=== PATIENT | female | born 1975 | race Caucasian/White ===

== ENCOUNTER 2025-08-11 18:07 | Emergency (ER) | payer OTHER, SELFPAY ==
[2025-08-11] VITALS (18 sets, daily range): BP systolic 111–155; BP diastolic 66–92; PULSE 68–89; RESP 12–24; O2SAT 95–100
--- NOTE | ~2025-08-11 | CT_ITS ---
EXAMINATION: CT facial bones wo con DATE: 08/11/2025 20:15 INDICATION: Right periorbital injury. TECHNIQUE: Computed tomography (CT) of the facial bones and maxillofacial region was performed without intravenous contrast. Automated exposure control and iterative reconstruction technique were employed. The dose-length product was 458.46 mGy-cm. COMPARISON: None. FINDINGS: There is rightward deviation of the nasal septum. There is a chronic fracture deformity of anterior wall of right maxillary sinus. No acute fracture. There is mild mucosal thickening in right maxillary sinus. The mastoid air cells are normal. There is severe cervical spondylosis. IMPRESSION: 1. No acute fracture. Reviewed, dictated and finalized at location E. PACKAGER IMPRESSION: 1. No acute fracture.
--- NOTE | ~2025-08-11 | XR_ITS ---
EXAMINATION: XR chest 2V, 08/11/2025 18:40 LATHE SET UP PERSON HISTORY: chest pain COMPARISON: No comparisons available. Technique: 2 views obtained. Findings: The lungs are clear, no effusion. No pneumothorax. Heart is normal size. Mediastinal and hilar contours are within normal limits. Bony thorax no acute abnormality. Impression: No acute cardiopulmonary abnormality. Reviewed, dictated and finalized at location P. E SET UP PERSON Impression: No acute cardiopulmonary abnormality.
--- NOTE | ~2025-08-11 | CT_ITS ---
EXAMINATION: CT brain wo con DATE: 08/11/2025 20:15 INDICATION: Headache. Head injury. TECHNIQUE: Computed tomography (CT) of the head was performed without intravenous contrast. The mA was adjusted according to patient size. Iterative reconstruction technique was employed. The dose-length product was 605.33 mGy-cm. COMPARISON: None FINDINGS: There is a right frontoparietal subdural hematoma that is hypodense to pierre matter with maximum thickness of 4 mm. There is a left frontoparietal subdural hematoma that is hypodense to pierre matter with maximum thickness of 4 mm. There is no acute ischemic infarct or abnormal mass lesion. The ventricles are normal size. The orbits are normal. The paranasal sinuses are clear. The mastoid air cells are normal. IMPRESSION: 1. Small bilateral subdural hematomas, likely subacute. I called this result to Dr. Geller. Reviewed, dictated and finalized at location E. ERENCE PLANNING MANAGER
--- NOTE | 2025-08-11 18:08 | ECG_ITS ---
Test Date: 2025-08-11 18:16:36 Measurements Intervals [place] Rate: 83 P: 17 ME: 116 QRS: 74 QRSD: 85 T: 46 QT: 359 QTc: 422 Interpretive Statements SINUS RHYTHM WITH SHORT ME INTERVAL No previous ECG available for comparison Electronically Signed On 08-12-2025 18:22:39 SHIPPING TEAM LEADER by Angelina Alford M.D.
[2025-08-11] MEDS: ASPIRIN 81 MG CHEWABLE TABLET 324 MG PO (18:18)
[2025-08-11 18:26] LABS: Hematocrit 43.1 % (37.0-47.0); Hemoglobin 14.2 g/dL (12.0-15.0); Immature Granulocyte Percent A 0.3 % (0-0.5); Lymphocytes Absolute Auto 2.60 K/mm3 (0.9-3.2); Mean Corpuscular HGB Conc 32.9 g/dl (32-36); Mean Corpuscular Hemoglobin 31.1 pg (26-34); Mean Corpuscular Volume 94.3 fl (80-100); Nucleated Red Blood Cells Absolute Auto 0.000 K/mm3 (0.0-0.012); Nucleated Red Blood Cells Perc 0.0 % (0.0-0.2); Platelet Count Result 425 k/mm3 (150-375); Red Blood Count 4.57 M/mm3 (4.2-5.4); White Blood Count 11.0 K/mm3 (4.5-10.0)
--- NOTE | 2025-08-11 18:30 | PC.NURSE ---
Pt has visible bruise on R eye. When asked about this, pt stated that it was caused by hitting her eye on a pole. Pt reports that she feels safe at home.
[2025-08-11 18:39] LABS: INR 0.9; Prothrombin Time 12.1 Seconds (11.1-14.7)
[2025-08-11 18:40] LABS: Partial Thromboplastin Time 25.2 Seconds (22.3-36.8)
[2025-08-11 18:55] LABS: Alanine Aminotransferase 20 U/L (6-35); Albumin Level 4.5 g/dL (3.5-5.1); Alkaline Phosphatase 75 U/L (38-126); Anion Gap 10 mmol/L (4-12); Aspartate Amino Transferase 25 U/L (14-36); Bilirubin,Total 0.3 mg/dL (0.2-1.3); Blood Urea Nitrogen 16 mg/dL (7-17); Calcium 9.5 mg/dL (8.4-10.2); Carbon Dioxide 22 mmol/L (22-30); Chloride 107 mmol/L (98-107); Estimated CRCL calculation 59 ml/min; Estimated Glomerular Filt Rate > 60; Glucose 97 mg/dL (65-110); Lipase 74 U/L (23-300); Potassium 3.5 mmol/L (3.4-5.0); Sodium 139 mmol/L (137-145); Total Protein 7.8 g/dL (6.3-8.2)
[2025-08-11 19:02] LABS: Troponin I < 0.012 ng/mL (0.000-0.034)
--- OUTSIDE RECORDS SUMMARY | 2025-08-11 19:10 | XMS_ITS | Clinical Summary ---
Author Organization [facility] Address [address] [place] [address] Care Team Providers Care Utility Technician Name Role Phone Guerrero Byrne MD Unavailable [phone] Gayle Orourke MD Primary Care Provider [phone] Allergies Active Allergy Reactions Criticality Noted Date Comments Bee Venom Unknown Low Penicillins Unknown Tramadol Vomiting Low Medications amitriptyline 75 MG tablet Take 2 tablets by mouth nightly at bedtime. 08/13/2018 Active atenolol 25 MG tablet Take 25 mg by mouth daily. 12/25/2021 Active baclofen 10 MG tablet Take 10 mg by mouth 3 (three) times a day. 02/16/2022 Active cetirizine 10 MG tablet Take 10 mg by mouth daily. 01/17/2022 Active DULoxetine 60 MG capsule Take 60 mg by mouth daily. 02/18/2022 Active QUEtiapine 400 MG tablet Take 400 mg by mouth nightly at bedtime. 02/02/2022 Active QUEtiapine 200 MG tablet Take 200 mg by mouth daily. 02/12/2022 Active senna-docusate 8.6-50 MG tablet Take 1 tablet by mouth in the morning. 30 tablet 02/23/2022 Active polyethylene glycol (MIRALAX) 17 GM/SCOOP powder Take 17 g by mouth daily as needed (constipation ). 255 g 02/23/2022 Active aspirin EC 325 MG tablet Take 1 tablet (325 mg total) by mouth daily with breakfast. To prevent blood clots. 30 tablet 02/23/2022 Active potassium chloride CR (KLOR-CON M) 20 MEQ tablet Take 1 tablet (20 mEq total) by mouth daily. 3 tablet 07/10/2022 Active diclofenac EC (VOLTAREN) 75 MG tablet Take 1 tablet (75 mg total) by mouth 2 (two) times daily. 28 tablet 08/05/2022 Active lidocaine (LIDO CHRISTINE) 4 % patch Place 1 patch onto the skin daily. Remove & Discard patch within 12 hours or as directed 30 patch 11/11/2024 Active methocarbamol (ROBAXIN-750) 750 MG Tab Take 1 tablet (750 mg total) by mouth every 8 (eight) hours as needed. 30 tablet 11/11/2024 Active albuterol sulfate HFA 108 (90 Base) MCG/ACT inhaler Inhale 2 puffs into the lungs every 6 (six) hours as needed for Wheezing. 8 g 01/22/2025 Active Active Problems Problem Noted Date Diagnosed Date Anxiety state 02/19/2022 Benign positional vertigo 02/19/2022 Breast mass 02/19/2022 Cervical pain 02/19/2022 Chronic diarrhea 02/19/2022 Cough 02/19/2022 Dizziness and giddiness 02/19/2022 Fracture of ankle 02/19/2022 Hyperlipidemia 02/19/2022 Insomnia 02/19/2022 Low back pain 02/19/2022 Migraine 02/19/2022 MRSA carrier 02/19/2022 Nicotine addiction 02/19/2022 Nicotine dependence, unspecified, uncomplicated 02/19/2022 Obesity 02/19/2022 Other chronic pain 02/19/2022 Pure hypercholesterolemia, unspecified Radiculopathy, site unspecified 02/19/2022 Rheumatoid arthritis 02/19/2022 Seasonal allergic rhinitis 02/19/2022 Degeneration of intervertebral disc 02/19/2022 Spondylosis, unspecified 02/19/2022 Unspecified blood type, Rh positive 02/19/2022 Closed dislocation of left ankle 02/19/2022 Ankle fracture 02/19/2022 Vertigo 01/21/2022 Sinus congestion 04/27/2021 Tachycardia 02/25/2021 Anger reaction 07/09/2019 Bipolar I disorder 07/09/2019 Spondylosis of thoracic spine 07/26/2016 Family History Medical History Relation Comments Diabetes Mother Diabetes Paternal Grandmother Relation Status Comments Brother Alive Father Alive Mother (Age 49) Paternal Grandmother Social History Tobacco Use Types Packs/Day Years Used Date Smoking Tobacco: Every Day Cigarettes Smokeless Tobacco: Never Tobacco Cessation:Ready to Q uit: Not Asked; Counseling Given: Not Answered Alcohol Use Standard Drinks/Week Comments No 0 (1 standard drink = 0.6 oz pur e alcohol) AUDIT-C Answer Date Recorded Frequency of Alcohol Consumption Never 10/18/2018 Average Number of Drinks Not on file 019 Frequency of Binge Drinking Not on file 10/03 Comments No Sex and Gender Information Value Date Recorded Sex Assigned at Female 11/11/2024 12:47 PM [employer] Legal Sex Female 1:36 AM CDT Gender Identity Not on file Sexual Orientation Not on file 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 Not on file Not on file Last Filed Vital Signs Vital Sign Reading Time Taken Comments Blood Pressure 121/77 03/06/2025 12:19 PM CDT Pulse 92 03/06/2025 12:19 PM CDT Temperature 36.6 C (97.8 F) 03/06/2025 9:35 AM CDT Respiratory Rate 16 03/06/2025 12:19 PM CDT Oxygen Saturation 100% 03/06/2025 12:19 PM CDT Inhaled Oxygen Concentration - - Weight 81.6 kg (180 lb) 03/06/2025 9:35 AM CDT Height 157.5 cm (5' 2) 03/06/2025 9:35 AM CDT Body Mass Index 32.92 03/06/2025 9:35 AM CDT Plan of Treatment Health Maintenance Due Date Last Done Comments Cervical Cancer Screening Pa p Smear (Age 30 to 64) Every 3 Years 1975 Colorectal Cancer Screening Colonoscopy (10 Years) 1975 Annual Physical 1978 Hepatitis C 1993 Hepatitis B Vaccines (1 of 3 - 19+ 3-dose series) 1994 Pneumococcal Vaccine: 50+ Years (1 of 2 - PCV) 1994 Cervical Cancer Screening Pa p with HPV Testing (Age 30 to 64) Every 5 Years 2005 Cervical Cancer Screening wi th HPV 2005 Mammogram Screening 2015 Zoster Vaccines (1 of 2) 2025 COVID-19 Vaccine (2024-2 6 season) 2025 Influenza Adult (#1) 2025 07/22/2014 DTaP, Tdap and Td Vaccines ( 2 - Td or Tdap) 03/27/2034 03/27/2024, 01/18/2014 Hepatitis A Vaccines Aged Out No long er eligible based on patient's age to complete this topic Meningococcal B Vaccine Aged Out No l onger eligible based on patient's age to complete this topic Meningococcal Vaccine Aged Out No theresa suzanne eligible based on patient's age to complete this topic RSV Immunizations Under 20 Months Aged Out No longer eligible b ased on patient's age to complete this topic Goals Goal Patient Goal Type Associated Problems Recent Progress Patient-Stated? Author Health - patient able to perform ADLs independently General Raysa Breen, seed service advisor - family caregiver with be involved in care transitions and discharge planning General Raysa Breen, RN Medical Devices Implanted Type Area Styrene Dehydration Reactor Operator Device Identifier Shelf Expiration Date Model / Serial / Lot Plate Synthes 2.7 Va Lateral Distal 4h Left - [id number] Implanted:Qty: 1 on 02/22/2022 by Konrad Willis MD at [facility] Plate Left: Ankle SYNTHES .[id number] / / 18mm X 2.7mm Locking Screw Implanted:Qty: 2 on 02/22/2022 by Konrad Willis MD at [facility] Screw Left: Ankle DEPUY SYNTHES 02.211.018 / / Screw Synthes 2.7 Cortical Self Tapping 14 - [id number] Implanted:Qty: 3 on 02/22/2022 by Konrad Willis MD at [facility] Screw Left: Ankle SYNTHES 202.814 / / Screw Synthes 2.7 Va Locking S/Tap T8 14mm - [id number] Implanted:Qty: 1 on 02/22/2022 by Konrad Willis MD at [facility] Screw Left: Ankle SYNTHES 02.211.014 / / Screw Synthes 3.5 Cortex S/Tap 12mm - [id number] Implanted:Qty: 1 on 02/22/2022 by Konrad Willis MD at [facility] Screw Left: Ankle SYNTHES 204.812 / / Screw Synthes 3.5 Cortex S/Tap 14mm - [id number] Implanted:Qty: 1 on 02/22/2022 by Konrad Willis MD at [facility] Screw Left: Ankle SYNTHES 204.814 / / Explanted Type Area Styrene Dehydration Reactor Operator Device Identifier Shelf Expiration Date Model / Serial / Lot Screw Synthes 3.5 Cortex S/Tap 18mm - [id number] Explanted:Qty: 1 on 02/22/2022 at [facility] Screw Left: Ankle SYNTHES 204.818 / / Insurance [place] Advance Directives * Full Code (Latest Code Status on File) Date Activated Date Inactivated Comments 02/22/2022 1:25 PM 02/23/2022 1:48 PM * Full Code Date Activated Date Inactivated Comments 02/19/2022 8:22 PM 02/22/2022 1:25 PM Care Teams Utility Technician Relationship Specialty Start Date End Date Gayle Orourke MD [address] [facility] [address] [place] [phone] PCP - General FAMILY PRACTICE 03/13/21 Guerrero Byrne MD [address] [facility] [address] [place] [address] [employer] CARDIOVASCULAR DISEASE 10/03/18
--- OUTSIDE RECORDS SUMMARY | 2025-08-11 19:10 | XMS_ITS | Clinical Summary ---
Author Organization [facility] Address [address] [place] [address] Care Team Providers Care Adjuster Electrical Contacts Name Role Phone Gayle Orourke MD Primary Care Provider [phone] Allergies Active Allergy Reactions Criticality Noted Date Comments Penicillin Unknown 11/11/2013 Tramadol Stomach upset,Vomiting Low 02/13/2014 Stomach/GI Upset Venom-Honey Bee Unknown Low 01/21/2022 Medications atenoloL (TENORMIN) 25 mg tablet 1 tablet (25 mg total) 1 Active amitriptyline (ELAVIL) 75 mg tablet 2 tablets (150 mg total) 8 Active atorvastatin (LIPITOR) 40 mg tablet Take 1 tablet (40 mg total) by mouth daily [address] (CYMBALTA) 60 mg capsule 1 capsule (60 mg total) 1 Active cetirizine (ZyrTEC) 10 mg tablet Take 1 tablet (10 mg total) by mouth daily 2 Active baclofen (LIORESAL) 10 mg tablet 1 tablet (10 mg total) 1 Active ibuprofen (ADVIL,MOTRIN) 800 mg tablet 1 tablet (800 mg total) 1 Active QUEtiapine (SEROquel) 100 mg tablet Take 1.5 tablets (150 mg total) by mouth daily 8 Active naproxen (NAPROSYN) 500 mg tablet Take 1 tablet (500 mg total) by mouth 2 (two) times a day with meals 30 tablet 3 Active lidocaine (LIDODERM) 5 %Indications:Lef t ankle pain, unspecified chronicity,Poste rior tibial tendon dysfunction,Pes planovalgus, acquired, left,Ankle arthritis Place 1 patch on the skin daily Remove & discard patch within 12 hours or as directed by MD. 30 patch 3 Active lidocaine (LIDODERM) 5 %Indications:Lef t ankle pain, unspecified chronicity Place 1 patch on the skin daily Remove & discard patch within 12 hours or as directed by MD. 30 patch 3 Active azithromycin (Zithromax Z-Grant) 250 mg tablet Take 1 tablet (250 mg total) by mouth daily Take first 2 tablets together, then 1 every day until finished. 6 tablet 5 Active albuterol HFA (PROVENTIL HFA,VENTOLIN HFA,PROAIR HFA) 90 mcg/actuation inhaler Inhale 1-2 puffs every 6 (six) hours as needed for wheezing 8 g 5 06/11/20 26 Active Active Problems Problem Noted Date Diagnosed Date Vertigo 01/21/2022 Encounters Date Type Department Care Team Description 06/11/2025 8:42 AM CDT - 06/11/2025 12:00 PM CDT Emergency [facility] Emergency Department [address] [place] [address] Azul Mar MD Shortness of breath (Primary Dx); Walking pneumonia Discharge Disposition: Discharge to home or self care 06/10/2025 4:06 PM CDT - 06/10/2025 6:10 PM CDT Emergency [address] [address] Felipe Ware MD Shortness of breath (Primary Dx); Chest pain, unspecified type; Pulmonary nodule Discharge Disposition: Discharge to home or self care from Last 3 Months Surgical History Surgery Date Site/Laterality Comments BREAST BIOPSY 06/24/2014 Left Social History Tobacco Use Types Packs/Day Years Used Date Smoking Tobacco: Every Day Cigarettes Personal Safety Answer Date Recorded Have you ever been in or are you currently in a harmful physical or emotional relationship or is someone making you feel afraid or unsafe? Denies 06/11/2025 Comments Unknown Sex and Gender Information Value Date Recorded Sex Assigned at Not on file Legal Sex Female 3:44 PM CDT Gender Identity Not on file Sexual Orientation Not on file Last Filed Vital Signs Vital Sign Reading Time Taken Comments Blood Pressure 116/79 06/11/2025 11:50 AM CDT Pulse 94 06/11/2025 11:50 AM CDT Temperature 36.7 C (98 F) 06/11/2025 7:31 AM CDT Respiratory Rate 18 06/11/2025 11:50 AM CDT Oxygen Saturation 95% 06/11/2025 11:50 AM CDT Inhaled Oxygen Concentration - - Weight 70.3 kg (155 lb) 06/11/2025 7:31 AM CDT Height 157.5 cm (5' 2) 06/11/2025 7:31 AM CDT Body Mass Index 28.35 06/11/2025 7:31 AM CDT Plan of Treatment Health Maintenance Due Date Last Done Comments Breast Cancer Screening-Mammogram 1975 Colon Cancer Screening-Colonoscopy 1975 Depression Screening 1975 Hepatitis C Screening 1975 Hepatitis B Screening 1993 Regular Well Visit/Exam 18-64 1993 Pneumococcal vaccine <65 (1 of 2 - PCV) 1994 Cervical Cancer Screening 04/01/2022 04/01/2021 Zoster Vaccine (1 of 2) 2025 Influenza Vaccine (#1) 2025 07/22/2014 DTaP/Tdap/Td Vaccine (2 - Td or Tdap) 03/27/2034, 01/18/2014 Procedures Procedure Name Priority Date/Time Associated Diagnosis Comments TROPONIN I HIGH-SENSITIVITY 2-HOUR Timed 06/11/2025 9:36 AM CDT XR CHEST PA LATERAL 2 VIEWS ED 06/11/2025 9:31 AM CDT INFLUENZA A/B, RSV, AND COVID-19 PCR STAT 06/11/2025 7:43 AM CDT ECG 12-LEAD STAT 06/11/2025 7:37 AM CDT EGFR STAT 06/11/2025 7:34 AM CDT DIFFERENTIAL AUTO STAT 06/11/2025 7:3 4 AM CDT TROPONIN I HIGH-SENSITIVITY SERIES (BASELINE, 2HR, 4HR, 6HR) STAT 06/11/2025 7:34 AM CDT COMPREHENSIVE METABOLIC PANEL STAT 06/11/2025 7:34 AM CDT CBC WITH AUTO DIFFERENTIAL STAT 06/11/2025 7:[address] CHEST PE W CONTRAST ED 4:08 PM CDT TROPONIN T HIGH-SENSITIVITY 2-HOUR Timed 06/10/2025 2:22 PM CDT XR CHEST 1 VIEW ED 06/10/2025 1:03 PM CDT PRO B-TYPE NATRIURETIC PEPTIDE STAT 06/10/2025 12:22 PM CDT EGFR STAT 06/10/2025 12:22 PM CDT DIFFERENTIAL AUTO STAT 06/10/2025 12: 22 PM CDT TROPONIN T HIGH-SENSITIVITY SERIES (BASELINE, 2HR, 4HR, 6HR) STAT 06/10/2025 12:22 PM CDT COMPREHENSIVE METABOLIC PANEL STAT 06/10/2025 12:22 PM CDT CBC WITH AUTO DIFFERENTIAL STAT 06/10/2025 12:22 PM CDT ECG 12-LEAD STAT 06/10/2025 12:16 PM CDT PAP AND HIGH RISK HPV, REFLEX TO GENOTYPING Routine 04/01/2021 9:47 AM CDT from Last 3 Months or Most Recently Relevant to Health Maintenance Results * Troponin I high-sensitivity 2-hour (06/11/2025 9:36 AM CDT) Trop I hs <4 <=17 ng/L Comment: Interpretive Data For further hscTnI resources including the diagnostic algorithm and an aid in interpretation, copy and paste this link: https://bjhlab.testcatalog.org/show/hsTrop-1 Current Interpretive Data last revised 2020. Trop I hs delta 0 ng/L [facility] Trop I hs interp Insignificant [facility] Blood 06/11/2025 9:36 AM CDT 06/11/2025 9:48 AM CDT Charles Martin MD LAB BLOOD ORDERABLES Final Result [facility] Department [place] [address] * XR Chest PA Lateral 2 Views (If patient hemodynamically stable and ambulatory) (06/11/2025 9:31 AM CDT) Anatomical Region Laterality Modality Body, Chest N/A Computed Radiogr aphy 06/11/2025 10:3 2 AM CDT Impressions 06/11/2025 11:59 AM CDT The current study is compared with the prior radiograph dated 06/10/2025 Lungs are clear. No definitive pleural effusion, or pneumothorax. No pulmonary edema. Cardiomediastinal silhouette is normal. Dictated by: Yesenia Still M.D. The radiology attending physician has personally reviewed this study, and had reviewed and/or edited this written report and agrees with it. Electronically signed by: Kraig Cisse M.D. Narrative 06/11/2025 11:59 AM CDT EXAMINATION: 2 view chest radiograph Procedure Note Kraig Cisse MD - 06/11/2025 EXAMINATION: 2 view chest radiograph IMPRESSION: The current study is compared with the prior radiograph dated 06/10/2025 Lungs are clear. No definitive pleural effusion, or pneumothorax. No pulmonary edema. Cardiomediastinal silhouette is normal. Dictated by: Yesenia Still M.D. The radiology attending physician has personally reviewed this study, and had reviewed and/or edited this written report and agrees with it. Electronically signed by: Kraig Cisse M.D. Azul Mar MD IMG XR PROCEDURES Stephanie l Result * Influenza A/B, RSV, and COVID-19 PCR Nasopharyngeal (06/11/2025 7:43 AM CDT) Pathologist [facility] [place] COVID-19 RNA Negative Negative [facility] Influenza A RNA Negative Negative [facility] Influenza B RNA Negative Negative [facility] RSV RNA Negative Negative [facility] Comment: Interpretive data: Testing performed by [facility] ([phone]). This test is performed using the [employer] Xpert Xpress CoV-2/Flu/RSV plus assay. This is a multiplex, real-time reverse transcriptase PCR assay intended for the qualitative detection of nucleic acid from SARS-CoV-2, influenza A, influenza B, and respiratory syncytial virus. This assay has been cleared by the [place] Food and Drug administration. The performance characteristics have been verified by the [facility]. Results must be considered in the clinical context, and a negative result does not rule out infection. Interpretive Data last revised 2023 Nasopharyngeal 06/11/2025 7: 43 AM CDT 06/11/2025 7:55 AM CDT Narrative [facility] - 06/11/2025 8:44 AM CDT Is the Patient experiencing symptoms consistent with COVID?->Yes Azul Mar MD LAB MICROBIOLOGY - GEN ERAL ORDERABLES Final Result [facility] Department [place] [address] [facility] * ECG 12-LEAD (06/11/2025 7:37 AM CDT) Narrative [facility] C - 06/11/2025 7:37 AM CDT Mila Shaw MD 06/11/2025 7:37 AM ECG 12 lead Date/Time: 06/11/2025 7:37 AM Performed by: Mila Shaw MD Authorized by: Charles Martin MD Rate: ECG rate: 104 ECG rate assessment: tachycardic Rhythm: Rhythm: sinus rhythm Ectopy: Ectopy: none QRS: QRS axis: Normal QRS intervals: Normal Conduction: Conduction: normal ST segments: ST segments: Normal T waves: T waves: normal Previous ECG: Previous ECG: Compared to current Similarity: No change Interpretation: Interpretation: No significant change Recommended Follow-up: Recommended follow up: further workup in the ED us Azul Mar MD ECG ORDERABLES Final Result Performing Organization Address City/[facility] Co de Phone Number [facility] * Troponin I high-sensitivity series (baseline, 2hr, 4hr, 6hr) (06/11/2025 7:34 AM CDT) Pathologist [facility] [place] Trop I hs <4 <=17 ng/L Comment: Interpretive Data For further hscTnI resources including the diagnostic algorithm and an aid in interpretation, copy and paste this link: [email or web address].testcatalog.org/show/[email or web address] Current Interpretive Data last revised 2020. Blood 06/11/2025 7:34 AM CDT 06/11/2025 7:59 AM CDT us Azul Mar MD LAB BLOOD ORDERABLES F inal Result [facility] Department [place] [address] * eGFR (06/11/2025 7:34 AM CDT) eGFR >90 >=60 mL/min/1. 73 m2 Comment: Interpretive Data Reference Interval Normal >/= 90 mL/min/1.73m2 Mildly decreased* 60 - 89 mL/min/1.73m2 Mildly to moderately decreased 45 - 59 mL/min/1.73m2 Moderately to severely decreased 30 - 44 mL/min/1.73m2 Severely decreased 15 - 29 mL/min/1.73m2 Kidney Failure < 15 mL/min/1.73m2 *Relative to young adult level Estimated glomerular filtration rate is determined by the 2020 CKD-EPI equation recommended by the National Kidney Foundation (A Unifying Approach to GFR Estimation: Recommendations of the NKF-ASK Task Force on Reassessing the Inclusion of Race in Diagnosing Kidney Disease, JASN 2020). The CKD-EPI equation should not be used for patients with unstable renal function and has not been validated in children and those over 70. Current interpretive data was last reviewed 2021. Blood 06/11/2025 7:34 AM CDT 06/11/2025 8:00 AM CDT Azul Mar MD LAB BLOOD ORDERABLES F inal Result [facility] [place] [address] * (ABNORMAL) Differential, auto (06/11/2025 7:34 AM CDT) Neutrophil abs 8.23(H) 1.50 - 6.50 K/cumm Imm gran abs 0.03 0.00 - 0.10 K/cumm [facility] Lymphocyte abs 3.44(H) 0.80 - 3.30 K/cumm [facility] Monocyte abs 0.70 0.20 - 0.80 K/cumm [facility] Eosinophil abs 0.35 0.00 - 0.50 K/cumm [facility] Basophil abs 0.09 0.00 - 0.10 K/cumm [facility] Neutrophil pct 64.1 % [facility] Comment: Interpretive Data Percent cell count reference ranges are not reported, since discordance with absolute values may lead to misinterpretation of CBC data. Current Interpretive Data was last revised on 2018. Imm gran pct 0.2 % [facility] Comment: Interpretive Data Percent cell count reference ranges are not reported, since discordance with absolute values may lead to misinterpretation of CBC data. Current Interpretive Data was last revised on 2018. Lymphocyte pct 26.8 % [facility] Comment: Interpretive Data Percent cell count reference ranges are not reported, since discordance with absolute values may lead to misinterpretation of CBC data. Current Interpretive Data was last revised on 2018. Monocyte pct 5.5 % [facility] Comment: Interpretive Data Percent cell count reference ranges are not reported, since discordance with absolute values may lead to misinterpretation of CBC data. Current Interpretive Data was last revised on 2018. Eosinophil pct 2.7 % [facility] Comment: Interpretive Data Percent cell count reference ranges are not reported, since discordance with absolute values may lead to misinterpretation of CBC data. Current Interpretive Data was last revised on 2018. Basophil pct 0.7 % [facility] Comment: Interpretive Data Percent cell count reference ranges are not reported, since discordance with absolute values may lead to misinterpretation of CBC data. Current Interpretive Data was last revised on 2018. Blood 06/11/2025 7:34 AM CDT 06/11/2025 8:06 AM CDT us Azul Mar MD LAB BLOOD ORDERABLES F inal Result [facility] Department [place] [address] * (ABNORMAL) CBC with auto differential (06/11/2025 7:34 AM CDT) WBC 12.84(H) 3.80 - 9.90 K/cumm Hgb 13.9 11.9 - 15.5 g/dL [facility] Hct 39.4 35.6 - 45.5 % [facility] Plt 447(H) 150 - 400 K/cumm [facility] MPV 9.8 9.1 - 12.3 fL [facility] RBC 4.34 3.90 - 5.20 M/cumm [facility] MCV 90.8 81.3 - 96.4 fL [facility] MCH 32.0 27.1 - 33.3 pg [facility] MCHC 35.3 32.3 - 35.7 g/dL [facility] RDW CV 13.0 11.1 - 14.9 % [facility] RDW SD 43.1 35.7 - 48.1 fL [facility] NRBC abs 0.00 0.00 - 0.01 K/cumm [facility] Blood Venous blood specimen / Unknown 06/11/2025 7:34 AM CDT 06/11/2025 8:06 AM CDT us Azul Mar MD LAB BLOOD ORDERABLES F inal Result [facility] Department [place] [address] * Comprehensive metabolic panel (06/11/2025 7:34 AM CDT) Pathologist [facility] [place] Sodium 137 135 - 145 mmol/L Potassium, pl 4.0 3.3 - 4.9 mmol/L [facility] Chloride 104 97 - 110 mmol/L [facility] CO2 23 22 - 32 mmol/L [facility] Anion gap 10 2 - 15 mmol/L [facility] BUN 13 6 - 25 mg/dL [facility] Creatinine 0.70 0.60 - 1.10 mg/dL [facility] Glucose 104 70 - 199 mg/dL [facility] Comment: Interpretive Data Fasting glucose >/= 126 mg/dl is diagnostic for diabetes. Fasting is defined as no caloric intake for at least 8 hours. Fasting glucose between 100 mg/dl to 125 mg/dl is diagnostic of prediabetes. In a patient with classic symptoms of hyperglycemia or hyperglycemic crisis, a random glucose >/= 200 mg/dl is diagnostic for diabetes. In the absence of unequivocal hyperglycemia, results should be confirmed by repeat testing. The classification and Diagnosis of Diabetes Diabetes Care 2021; 46: S19-S40. Current interpretive data was last revised 2022. Calcium 9.2 8.5 - 10.3 mg/dL [facility] Bilirubin, total 0.2 0.1 - 1.2 mg/dL [facility] Protein, pl 7.2 6.5 - 8.5 g/dL [facility] Albumin 4.2 3.5 - 5.0 g/dL [facility] Alk phos 78 40 - 130 Units/L [facility] ALT 17 7 - 45 Units/L [facility] AST 17 10 - 45 Units/L [facility] Blood 06/11/2025 7:34 AM CDT 06/11/2025 8:00 AM CDT us Azul Mar MD LAB BLOOD ORDERABLES F inal Result [facility] Department [place] [address] * CT Chest PE (CTA) W Contrast (06/10/2025 4:08 PM CDT) Anatomical Region Laterality Modality Body N/A Computed Tomogra phy 06/10/2025 5:04 PM CDT Narrative 06/10/2025 5:10 PM CDT EXAM DESCRIPTION: CT CHEST PE (CTA) W CONTRAST REASON FOR STUDY: Pulmonary embolism (PE) suspected, high prob C/O left sided CP, SOB x 1.5 hours. Pt states I was doing nothing at all when it started. Pt endorses blurred vision, dizziness. Pt denies N/V/D TECHNIQUE: CT angiogram of the chest performed with intravenous contrast using helical scanning technique with dynamic intravenous contrast injection. Reconstructed coronal and sagittal MPR images reviewed. All images stored on PACS. 3D MIP images rendered on scanning unit and reviewed at time of interpretation. Automated exposure control was used as a dose optimization technique for this examination. CONTRAST TYPE/DOSE: 93mL of IOVERSOL 350 MG IODINE/ML INTRAVENOUS SYRINGE injected via intravenous COMPARISON: None FINDINGS: VASCULATURE: No identified pulmonary emboli. LUNGS: 6 mm nodule is seen near the right lung apex along the posterior pleural surface on image number 23 the lungs are otherwise clear. No consolidation is seen. PLEURA: No effusion. No pneumothorax. MEDIASTINUM/MONSERRAT: No identified masses or abnormal nodes. HEART: Heart size is normal with no pericardial effusion. AXILLA: No adenopathy. CHEST WALL: No masses. No subcutaneous air. HARDWARE/LINES/TUBES: None. UPPER ABDOMEN: No significant abnormality. MUSCULOSKELETAL: No significant abnormality. OTHER: No significant abnormality. IMPRESSION: 1. No evidence of pulmonary embolism is seen. No acute abnormality is seen. 2. 6 mm nodule is seen in the right lung apex. Follow-up as below. Recent guidelines by the Fleischner Society (Radiology 532913,2017) divides patient into low vs. high risk (for example, patients who smoke are considered high risk) and provides followup recommendations as follows: SOLITARY PULMONARY NODULE: Patients considered LOW RISK for lung cancer and a solitary nodule equal to or larger than 6 mm or equal to or less than 8 mm in diameter require follow-up CT at 6-12 months, then consider CT at 18-24 months. In patients at HIGHER RISK require follow-up CT at 6-12 months, then CT at 18-24 months. MULTIPLE PULMONARY NODULES: Patients considered LOW RISK for lung cancer and multiple nodules equal to or larger than 6 mm or equal to or less than 8 mm in diameter require follow-up CT at 3-6 months, then consider CT at 18-24 months. Patients at HIGHER RISK require follow-up CT at 3-6 months, then CT at 18-24 months. Note: These recommendations do not apply to lung cancer screening, patients with immunosuppression, or patients with known primary cancer. http://pubs.rsna.org/doi/pdf/10.1148/radiol.8577395116 THIS IS AN ELECTRONICALLY VERIFIED FINAL REPORT 06/10/2025 5:10 PM - Electronically signed by Chris Cronin M.D. KH T: Report ID: [id number] Reading Location: [place] [address] Procedure Note Chris Cronin MD - 06/10/2025 EXAM DESCRIPTION: CT CHEST PE (CTA) W CONTRAST REASON FOR STUDY: Pulmonary embolism (PE) suspected, high prob C/O left sided CP, SOB x 1.5 hours. Pt states I was doing nothing at allwhen it started. Pt endorses blurred vision, dizziness. Pt denies N/V/D TECHNIQUE: CT angiogram of the chest performed with intravenous contrastusing helical scanning technique with dynamic intravenous contrast injection. Reconstructed coronal and sagittal MPR images reviewed. All images storedon PACS. 3D MIP images rendered on scanning unit and reviewed at time of interpretation. Automated exposure control was used as a doseoptimization technique for this examination. CONTRAST TYPE/DOSE: 93mL of IOVERSOL 350 MG IODINE/ML INTRAVENOUSSYRINGE injected via intravenous COMPARISON: None FINDINGS: VASCULATURE: No identified pulmonary emboli. LUNGS: 6 mm nodule is seen near the right lung apex along the posterior pleural surface on image number 23 the lungs are otherwise clear. No consolidation is seen. PLEURA: No effusion. No pneumothorax. MEDIASTINUM/MONSERRAT: No identified masses or abnormal nodes. HEART: Heart size is normal with no pericardial effusion. AXILLA: No adenopathy. CHEST WALL: No masses. No subcutaneous air. HARDWARE/LINES/TUBES: None. UPPER ABDOMEN: No significant abnormality. MUSCULOSKELETAL: No significant abnormality. OTHER: No significant abnormality. IMPRESSION: 1. No evidence of pulmonary embolism is seen. No acute abnormality isseen. 2. 6 mm nodule is seen in the right lung apex. Follow-up as below. Recent guidelines by the Fleischner Society (Radiology 897720,2017)divides patient into low vs. high risk (for example, patients who smoke areconsidered high risk) and provides followup recommendations as follows: SOLITARY PULMONARY NODULE: Patients considered LOW RISK for lung cancerand a solitary nodule equal to or larger than 6 mm or equal to or less than 8 mmin diameter require follow-up CT at 6-12 months, then consider CT at 18-24 months. In patients at HIGHER RISK require follow-up CT at 6-12 months,then CT at 18-24 months. MULTIPLE PULMONARY NODULES: Patients considered LOW RISK for lung cancerand multiple nodules equal to or larger than 6 mm or equal to or less than 8mm in diameter require follow-up CT at 3-6 months, then consider CT at 18-24months. Patients at HIGHER RISK require follow-up CT at 3-6 months, then CT at18-24 months. Note: These recommendations do not apply to lung cancer screening,patients with immunosuppression, or patients with known primary cancer. http://pubs.rsna.org/doi/pdf/10.1148/radiol.4821135476 THIS IS AN ELECTRONICALLY VERIFIED FINAL REPORT 06/10/2025 5:10 PM - Electronically signed by Chris Cronin M.D. KH T: Report ID: [id number] Reading Location: [place] [address] us Chloé NORIEGA IMG CT PROCEDURES Final Re sult * Troponin T high-sensitivity 2-hour (06/10/2025 2:22 PM CDT) Trop T hs <6 <=14 ng/L Comment: Interpretive Data For further hscTnT resources including the diagnostic algorithm and an aid in interpretation, copy and paste this link: https://nrl.testcatalog.org/show/hsTrop Current Interpretive Data last revised 2020. Trop T hs delta 0 ng/L [facility] Trop T hs interp Insignificant [facility] Blood 06/10/2025 2:22 PM CDT 06/10/2025 2:27 PM CDT us Diamante Arriola MD LAB BLOOD ORDERABLES F inal Result [facility] [address] [facility] Department [place] [address] * XR Chest 1 Vw Portable (If patient hemodynamically UNstable or UNable to ambulate) (06/10/2025 1:03PM CDT) Anatomical Region Laterality Modality Body, Chest N/A Computed Radiogr aphy 06/10/2025 1:31 PM CDT Narrative 06/10/2025 1:32 PM CDT EXAM DESCRIPTION: XR CHEST 1 VIEW REASON FOR STUDY: chest pain Pt arrives to ED via POV from home. Pt C/O left sided CP, SOB x 1.5 hours. Pt states I was doing nothing at all when it started. Pt endorses blurred vision, dizziness. Pt denies N/V/D. Ax4. NAD. Ambulatory to triage. TECHNIQUE: PA radiographic view(s) of the chest. COMPARISON: 06/10/2024. FINDINGS: LUNGS: There is minimal opacity in the right base which could reflect atelectasis or mild airspace disease. The left lung is clear. No effusion or pneumothorax. HEART/MEDIASTINUM: Cardiac silhouette normal in size. Mediastinal and hilar contours appear normal. LINES/TUBES: None. BONES: No acute osseous abnormality. IMPRESSION: Minimal right basilar opacity which could reflect atelectasis or mild airspace disease. Follow-up as warranted clinically THIS IS AN ELECTRONICALLY VERIFIED FINAL REPORT 06/10/2025 1:32 PM - Electronically signed by Keren Diane M.D. TW T: Report ID: [id number] Reading Location: [id number] Procedure Note Keren Diane MD - 06/10/2025 EXAM DESCRIPTION: XR CHEST 1 VIEW REASON FOR STUDY: chest pain Pt arrives to ED via POV from home. Pt C/O left sided CP, SOB x 1.5 hours.Pt states I was doing nothing at all when it started. Pt endorses blurred vision, dizziness. Pt denies N/V/D. Ax4. NAD. Ambulatory to triage. TECHNIQUE: PA radiographic view(s) of the chest. COMPARISON: 06/10/2024. FINDINGS: LUNGS: There is minimal opacity in the right base which could reflect atelectasis or mild airspace disease. The left lung is clear. No effusion or pneumothorax. HEART/MEDIASTINUM: Cardiac silhouette normal in size. Mediastinal andhilar contours appear normal. LINES/TUBES: None. BONES: No acute osseous abnormality. IMPRESSION: Minimal right basilar opacity which could reflect atelectasisor mild airspace disease. Follow-up as warranted clinically THIS IS AN ELECTRONICALLY VERIFIED FINAL REPORT 06/10/2025 1:32 PM - Electronically signed by Keren Diane M.D. TW T: Report ID: [id number] Reading Location: [id number] Felipe Ware MD IMG XR PROCEDURES Final Result * Troponin T high-sensitivity series (baseline, 2hr, 4hr, 6hr) (06/10/2025 12:22 PM CDT) Trop T hs <6 <=14 ng/L Comment: Interpretive Data For further hscTnT resources including the diagnostic algorithm and an aid in interpretation, copy and paste this link: [email or web address].testcatalog.org/show/[email or web address] Current Interpretive Data last revised 2020. Blood 06/10/2025 12:2 2 PM CDT 06/10/2025 12:40 PM CDT us Felipe Ware MD LAB BLOOD ORDERABLES nal Result [facility] Department [place] [address] * eGFR (06/10/2025 12:22 PM CDT) Pathologist [facility] [place] eGFR >90 >=60 mL/min/1. 73 m2 Comment: Interpretive Data Reference Interval Normal >/= 90 mL/min/1.73m2 Mildly decreased* 60 - 89 mL/min/1.73m2 Mildly to moderately decreased 45 - 59 mL/min/1.73m2 Moderately to severely decreased 30 - 44 mL/min/1.73m2 Severely decreased 15 - 29 mL/min/1.73m2 Kidney Failure < 15 mL/min/1.73m2 *Relative to young adult level Estimated glomerular filtration rate is determined by the 2020 CKD-EPI equation recommended by the National Kidney Foundation (A Unifying Approach to GFR Estimation: Recommendations of the NKF-ASK Task Force on Reassessing the Inclusion of Race in Diagnosing Kidney Disease, JASN 202). The CKD-EPI equation should not be used for patients with unstable renal function and has not been validated in children and those over 70. Current interpretive data was last reviewed 2021. Blood 06/10/2025 12:2 2 PM CDT 06/10/2025 12:40 PM CDT us Felipe Ware MD LAB BLOOD ORDERABLES Fi nal Result [facility] [address] [facility] Department of Laboratories [place], [place] [id number] * (ABNORMAL) Differential, auto (06/10/2025 12:22 PM CDT) Neutrophil abs 6.68(H) 1.50 - 6.50 K/cumm Imm gran abs 0.02 0.00 - 0.10 K/cumm [facility] Lymphocyte abs 2.31 0.80 - 3.30 K/cumm [facility] Monocyte abs 0.43 0.20 - 0.80 K/cumm [facility] Eosinophil abs 0.51(H) 0.00 - 0.50 K/cumm [facility] Basophil abs 0.10 0.00 - 0.10 K/cumm [facility] Neutrophil pct 66.4 % [facility] Comment: Interpretive Data Percent cell count reference ranges are not reported, since discordance with absolute values may lead to misinterpretation of CBC data. Current Interpretive Data was last revised on 2018. Imm gran pct 0.2 % [facility] Comment: Interpretive Data Percent cell count reference ranges are not reported, since discordance with absolute values may lead to misinterpretation of CBC data. Current Interpretive Data was last revised on 2018. Lymphocyte pct 23.0 % [facility] Comment: Interpretive Data Percent cell count reference ranges are not reported, since discordance with absolute values may lead to misinterpretation of CBC data. Current Interpretive Data was last revised on 2018. Monocyte pct 4.3 % [facility] Comment: Interpretive Data Percent cell count reference ranges are not reported, since discordance with absolute values may lead to misinterpretation of CBC data. Current Interpretive Data was last revised on 2018. Eosinophil pct 5.1 % [facility] Comment: Interpretive Data Percent cell count reference ranges are not reported, since discordance with absolute values may lead to misinterpretation of CBC data. Current Interpretive Data was last revised on 2018. Basophil pct 1.0 % [facility] Comment: Interpretive Data Percent cell count reference ranges are not reported, since discordance with absolute values may lead to misinterpretation of CBC data. Current Interpretive Data was last revised on 2018. Blood 06/10/2025 12:2 2 PM CDT 06/10/2025 12:40 PM CDT us Felipe Ware MD LAB BLOOD ORDERABLES Fi nal Result [facility] [address] [facility] Department [place] [address] * Pro B-type natriuretic peptide (06/10/2025 12:22 PM CDT) NT-proBNP 54 <=300 pg/mL Comment: Interpretive Comments: A. Dyspnea in Acute Care Setting All Ages: < 300 pg/ml, acute heart failure unlikely. < 50 yrs: 300 - 450 pg/ml, further investigation warranted. > 450 pg/ml, acute heart failure likely. 50 - 74 yrs: 300 - 900 pg/ml, further investigation warranted. > 900 pg/ml, acute heart failure likely . > or = 75 yrs: 450 - 1800 pg/ml, further investigation warranted. > 1800 pg/ml, acute heart failure likely. B. Non-acute Setting < 75 yrs < 125 pg/ml, rules out heart failure. > or = 125 pg/ml, further investigation warranted. > or = 75 yrs < 450 pg/ml, rules out heart failure. > or = 450 pg/ml, further investigation warranted. - Knowledge of each individual patient's NT-proBNP range may be more useful than using similar cut-points for every patient. Please note that marked elevations in NT-proBNP levels may be observed in state other than Left Ventricular Congestive Failure, including: acute coronary syndromes, right heart strain/failure (including pulmonary embolism and cor pulmonale), critical illness, renal failure, as well as advanced age. - References: 1. Ashley LANGSTON et.al. Eur Heart J. 2006:27:330-337. 2. Wily AMAYA, Prince HINKLE. J. AM Jazmin Cardiol: Cardiovasc Imag. 2009;2: 216- 225. Interpretive Data Last Revised Date: 2018. Blood 06/10/2025 12:2 2 PM CDT 06/10/2025 12:22 PM CDT Chloé NORIEGA LAB BLOOD ORDERABLES Final Result Performing Organization Address [facility] Co de Phone Number [facility] [address] [place] [address] * (ABNORMAL) CBC with auto differential (06/10/2025 12:22 PM CDT) [facility] WBC 10.05(H) 3.80 - 9.90 K/cumm Hgb 14.8 11.9 - 15.5 g/dL [facility] Hct 44.9 35.6 - 45.5 % [facility] Plt 469(H) 150 - 400 K/cumm [facility] MPV 9.9 9.1 - 12.3 fL [facility] RBC 4.82 3.90 - 5.20 M/cumm [facility] MCV 93.2 81.3 - 96.4 fL [facility] MCH 30.7 27.1 - 33.3 pg [facility] MCHC 33.0 32.3 - 35.7 g/dL [facility] RDW CV 13.2 11.1 - 14.9 % [facility] RDW SD 44.9 35.7 - 48.1 fL [facility] NRBC abs 0.00 0.00 - 0.01 K/cumm [facility] Blood Venous blood specimen / Unknown 06/10/2025 12:22 PM CDT 06/10/2025 12:40 PM CDT Felipe Ware MD LAB BLOOD ORDERABLES Fi nal Result [address] [place] [address] * (ABNORMAL) Comprehensive metabolic panel (06/10/2025 12:22 PM CDT) [facility] Sodium 140 135 - 145 mmol/L Potassium, pl 3.6 3.3 - 4.9 mmol/L [facility] Comment:Hemolyzed; Potassium value may be falsely elevated by as much as 1.0 mmol/L. Suggest redraw and reanalysis. Chloride 102 97 - 110 mmol/L [facility] CO2 21(L) 22 - 32 mmol/L [facility] Anion gap 17(H) 2 - 15 mmol/L [facility] BUN 11 6 - 25 mg/dL [facility] Creatinine 0.77 0.60 - 1.10 mg/dL [facility] Glucose 150 70 - 199 mg/dL [facility] Comment: Interpretive Data Fasting glucose >/= 126 mg/dl is diagnostic for diabetes. Fasting is defined as no caloric intake for at least 8 hours. Fasting glucose between 100 mg/dl to 125 mg/dl is diagnostic of prediabetes. In a patient with classic symptoms of hyperglycemia or hyperglycemic crisis, a random glucose >/= 200 mg/dl is diagnostic for diabetes. In the absence of unequivocal hyperglycemia, results should be confirmed by repeat testing. The classification and Diagnosis of Diabetes Diabetes Care 2021; 46: S19-S40. Current interpretive data was last revised 2022. Calcium 10.2 8.5 - 10.3 mg/dL [facility] Bilirubin, total 0.3 0.1 - 1.2 mg/dL [facility] Protein, pl 7.4 6.5 - 8.5 g/dL [facility] Albumin 4.3 3.5 - 5.0 g/dL [facility] Alk phos 81 40 - 130 Units/L [facility] ALT 16 7 - 45 Units/L [facility] AST 19 10 - 45 Units/L [facility] Comment:Hemolyzed; result ma y be falsely elevated Blood 06/10/2025 12:2 2 PM CDT 06/10/2025 12:40 PM CDT us Felipe Ware MD LAB BLOOD ORDERABLES Fi nal Result [facility] [address] [facility] Department [place] [address] * ECG 12 lead (06/10/2025 12:16 PM CDT) Pathologist [facility] [place] Ventricular Rate EKG/Min 101 BPM [facility] Atrial Rate 101 BPM [facility] KS-Interval (MSEC) 128 ms [facility] QRS-Interval (MSEC) 86 ms [facility] QT-Interval (MSEC) 344 ms [facility] QTc 446 ms [facility] P [place] 69 degrees [facility] R [place] 70 degrees [facility] T [place] 47 degrees [facility] Diagnosis Sinus tachycardia Possible Left atrial enlargement Borderline ECG When compared with ECG of 10-JUN-2024 20:45 No significant change Confirmed by CLAUDE QUIROZ M.D. ([id number]) on 06/10/2025 8:22:01 PM [facility] 06/10/2025 12:1 6 PM CDT 06/10/2025 8:22 PM CDT us Felipe Ware MD ECG ORDERABLES Final R esult [facility] * Pap and High Risk HPV, reflex to Genotyping (04/01/2021 9:47 AM CDT) Pap test 04/01/2021 9:47 AM CDT 04/02/2021 9:47 AM CDT Narrative 04/08/2021 12:05 PM CDT [facility] Department of Pathology [address] [place] [address] Final Report Patient Name: JASON HESTER Address: [place] [address] Gender: F : 1975 (Age: 46) Service: Laboratory Location: Lab [facility] #: [id number] Patient Type: Ref Lab Taken: 04/01/2021 Received: 04/02/2021 Accessioned:: 04/03/2021 Reported: 04/08/2021 [id number] Diagnosis: Source of Specimen: SCREENING THIN PREP IMAGED PAP w/ Reflex HPV Specimen Adequacy: - Satisfactory for evaluation; endocervical/transformation zone component present General Category: - Negative for intraepithelial lesion or malignancy Marlena Malick, CT(ASCP) Report Electronically Reviewed and Signed Out By FERNANDO Forrester(ASCP) 04/08/2021 12:05:53 Specimen(s) Received: A: SCREENING THIN PREP IMAGED PAP w/ Reflex HPV Clinical History: Last Menstrual Period: 03/03/20 Menstrual History: Clinical History: 06/02/2018 low T zone The Pap test is a screening test used to aid in the detection of cervical cancer and its precursors. It should not be the sole means by which malignant and premalignant lesions are diagnosed. Both false negative and false positive results may occur. It also has poor sensitivity for the detection of endometrial lesions and should not be used to evaluate suspected endometrial abnormalities. For these reasons it is most important to obtain Pap tests at regular intervals. The performance characteristics of some immunohistochemical stains, fluorescence in-situ hybridization tests and immunophenotyping by flow cytometry cited in this report (if any) were determined by the Surgical Pathology Department at as part of an ongoing quality control checker program and in compliance with federally mandated regulations drawn from the Clinical Laboratory Improvement Act of 1988 (CLIA '88). Some of these tests rely on the use of analyte specific reagents and are subject to specific labeling requirements by the US Food and Drug Administration. Such diagnostic tests may only be performed in a facility that is certified by the Department of Health and Human Services as a high complexity laboratory under CLIA '88. The FDA has determined that such clearance or approval is not necessary. This test is used for clinical purposes. It should not be regarded as investigational or for research. Nevertheless, federal rules concerning the medical use of analyte specific reagents require that the following disclaimer be attached to the report: This test was developed and its performance characteristics determined by the Surgical Pathology Department [facility]. It has not been cleared or approved by the U. S. Food and Drug Administration. us Notinfile Unknown LAB CYTOLOGY ORDERABLES Final Result from Last 3 Months or Most Recently Relevant to Health Maintenance Insurance [facility] Care Teams Adjuster Electrical Contacts Relationship Specialty Start Date End Date Gayle Orourke MD [address] [place] [address] PCP - General Family Medicine 12/19/22
--- OUTSIDE RECORDS SUMMARY | 2025-08-11 19:10 | XMS_ITS | Encounter Summary ---
Author Organization [facility] Address [address] [place] [address] Care Team Providers Care Product Advisor Name Role Phone Sravani Cook Primary Care Provider Unavailab Guerrero Carson MD Unavailable [phone] Gayle Orourke MD Primary Care Provider [phone] Encounter Details Date Type Department Care Team (Late st Contact Info) Description 10/23/2018 Abstract [facility] at [address] [address] Geoffrey Parker MA Social History Tobacco Use Types Packs/Day Years Used Date Smoking Tobacco: Every Day Cigarettes Smokeless Tobacco: Never Alcohol Use Standard Drinks/Week Comments No 0 (1 standard drink = 0.6 oz pur e alcohol) AUDIT-C Answer Date Recorded Frequency of Alcohol Consumption Never 10/18/2018 Average Number of Drinks Not on file 019 Frequency of Binge Drinking Not on file 10/03 Comments Unknown Sex and Gender Information Value Date Recorded Sex Assigned at Female 11/11/2024 12:47 PM [employer] Sex Female 1:36 AM CDT Gender Identity Not on file Sexual Orientation Not on file 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 file Not on file Not on file documented as of this encounter Plan of Treatment Not on file documented as of this encounter Procedures Procedure Name Priority Date/Time Associated Diagnosis Comments CBC (OUTSIDE LAB) Routine 09/20/2018 COMPREHENSIVE METABOLIC PANEL Routine 09/20/2018 LIPID PANEL Routine 09/20/2018 HEMOGLOBIN, GLYCOSYLATED Routine 09/20/2018 THYROXINE, FREE (FT4) Routine 09/20/2018 THYROID STIM HORMONE TSH Routine 09/20/2018 documented in this encounter Results * HEMOGLOBIN, GLYCOSYLATED (09/20/2018) HGB A1C 5.2 09/20/2018 us Doc [facility] Final Result * THYROXINE, FREE (FT4) (09/20/2018) FREE T4 1.0 09/20/2018 us Doc [facility] Final Result * THYROID STIM HORMONE, TSH (09/20/2018) TSH 1.24 09/20/2018 us Doc [facility] Final Result * LIPID PANEL (09/20/2018) CHOLESTEROL 232 HDL 42 TRIGLYCERIDES 183 LDL (CALCULATED) 153 09/20/2018 us Doc [facility] Final Result * COMPREHENSIVE METABOLIC PANEL (09/20/2018) SODIUM S/P/B 139 POTASSIUM S/P/B 4.3 CO2 25.6 CHLORIDE S/P/B 101 GLUCOSE 102 mg/dL CALCIUM S/P/B 9.5 BUN 16 CREATININE S/P/B 0.71 0.5 - 1.0 EGFR NON-AFR. AMER. 90 <=90 ALKALINE PHOSPHATASE S/P/B 68 ALT 11 AST 15 BILIRUBIN TOTAL S/P/B 0.3 ALBUMIN S/P/B 4.9 3.5 - 5.0 TOTAL PROTEIN S/P/B 7.4 09/20/2018 us Doc [facility] Final Result * CBC (OUTSIDE LAB) (09/20/2018) WBC 7.6 HGB 13.4 HCT 39.4 PLT 476 09/20/2018 us Doc [facility] LAB-OUTSIDE/ABSTRACTED Edite d Result - Final documented in this encounter Visit Diagnoses Not on filedocumented in this encounter Additional Health Concerns Infection Onset Date Last Indicated Resolved Time COVID-19 Rule Out 02/19/2022 02/20/2022 02/20/2022 9:09 AM CDT COVID-19 Rule Out 01/21/2025 01/21/2025 01/22/2025 12:52 AM CDT Respiratory Rule Out 01/21/2025 01/21/2025 025 12:54 AM CDT COVID-19 Confirmed 01/21/2025 01/21/2025 7:55 PM CDT documented as of this encounter Care Teams Product Advisor Relationship Specialty Start Date End Date Sravani Cook PA PCP - General PHYSICIAN DIRECTOR MOBILE 10/03/18 03/12/21 Gayle Orourke MD [address] [facility] [address] [place] [phone] PCP - General FAMILY PRACTICE 03/13/21 Guerrero Byrne MD [address] [facility] [address] [place] [phone] [place] [employer] Inspector CARDIOVASCULAR DISEASE 10/03/18 documented as of this encounter
--- NOTE | 2025-08-11 19:55 | PC.NURSE ---
Pts shameka Elizalde called the ED asking for an update on the pt. Pt said that I could talk to him and only say that she was here being evaluated for a heart attack. Shameka wants pt to call him and he is on the way here. Pt taken to hallway phone to call him back. Pt was able to walk there with a steady gait. Tonio: [phone]
--- NOTE | 2025-08-11 19:57 | ED_ITS ---
HPI - Chest Pain General Chief Complaint: Chest Pain Stated Complaint: cp Time Seen by Provider: 08/11/25 18:58 Source: patient Mode of arrival: ambulatory Limitations: no limitations History of Present Illness HPI narrative: This is a 50-year-old female with no significant past medical history presents the ED for chest pain. Patient states that for the past 2 hours, she has been having sternal chest pain that does not radiate. She has also had shortness of breath and dizziness. She has had a cough for the past couple days with production of clear sputum. She had similar symptoms a month ago when she was found have pneumonia. No known sick contacts. Patient also noted to have a black eye on the right and states that she recently moved into a camper and set up quickly in the bunk bed and hit her right eye on 1 of the cabinets that is right there. She did not have any headache after that. She reports that she does feel safe at home and has no concerns for domestic abuse at this time. Related Data Allergies Allergy/AdvReac Type Severity Reaction Status Date / Time bee venom protein (honey bee) Allergy Unknown Unknown Verified 08/11/25 18:19 Penicillins Allergy Unknown Unknown Verified 08/11/25 18:19 tramadol Allergy Unknown Unknown Verified 08/11/25 18:19 Review of Systems 2 Review of Systems: Gen.: Denies fevers or chills Eyes: Denies eye pain or visual change ENT: Denies congestion Respiratory: Denies shortness of breath or cough CV: Denies chest pain or palpitations GI: Denies abdominal pain nausea, emesis or diarrhea denies burning, urgency, frequency or hematuria Musculoskeletal: Denies back pain or muscle pain Neuro: Denies numbness, tingling, weakness or focal weakness Skin: Denies rash Except as documented, all other systems reviewed and negative Exam 2 Narrative: APPEARANCE: No acute distress, nontoxic, resting in bed EYES: EOMI. PERRL. HEENT: Normocephalic, OMM. Ecchymosis over the right orbit with no tenderness to palpation. Unable to visualize right TM due to cerumen impaction. Left TM clear. RESPIRATORY: No respiratory distress Clear to auscultation bilaterally with no rhonchi wheezing or rales. CARDIOVASCULAR: Regular rate and rhythm without murmurs rubs or gallops. No chest wall tenderness to palpation ABDOMINAL: Soft, nontender, nondistended, no rebound or guarding MUSCULOSKELETAl: Moves all extremities. No clubbing, cyanosis or edema. NEURO: Awake and alert. Following commands, speech normal, no focal deficits SKIN:: Warm, dry. No rashes lesions or abrasions PSYCHIATRIC: Normal affect/mood, Course Vital Signs Vital signs: Vital Signs Pulse Rate 89 08/11/25 18:11 Respiratory Rate 24 H 08/11/25 18:11 Blood Pressure 155/83 H 08/11/25 18:11 Pulse Oximetry 100 08/11/25 18:11 Oxygen Delivery Room Air 08/11/25 18:11 Pulse Rate 68 08/11/25 22:11 Respiratory Rate 16 08/11/25 22:11 Blood Pressure 135/66 08/11/25 22:11 Pulse Oximetry 100 08/11/25 22:11 Oxygen Delivery Room Air 08/11/25 21:25 MDM - Chest Pain MDM Narrative Medical decision making narrative: 50-year-old female Presenting for chest pain. On initial evaluation patient was in no acute distress afebrile, hemodynamic stable. Differentials include but are not limited to: ACS, PE, PNA, bronchitis, costochondritis, pleurisy, viral syndrome, GERD Notable exam findings: Ecchymosis over the right orbit. Heart and lungs clear. Abdomen soft and nontender. Notable lab findings: Mild leukocytosis of 11. CMP without significant abnormalities. Initial troponin negative. Repeat troponin negative. Notable imaging findings: CT head showed no acute process. CT face showed a left supraorbital hematoma but no evidence of fractures. Chest x-ray showed no acute process. Patient's EKGs and labs are without significant high risk changes. Cardiac risk factors reviewed. Patient is felt likely low risk for ACS and reasonable for further risk stratification testing as an outpatient. Pain was not sudden or maximal in onset without tearing or ripping quality. No other signs of symptoms suggest aortic dissection. A low-risk Wells criteria is noted, PE is felt to be unlikely. No pneumonia seen on evaluation today. Patient is felt to be a reasonable candidate for continued evaluation as an outpatient. Additionally, myself and nursing discussed safety of the patient home and she reiterates that she does feel safe at home there is no concerns for domestic violence at this time. Patient was deemed appropriate for discharge at this time. Patient was given a referral to Dr. Champion, family Medicine, to establish care. Patient was agreeable to this plan. Given strict return precautions. Medical Records Data Attestation: I reviewed the patient's medical records. Lab Data Attestation: I reviewed the patient's lab results. 08/11/25 18:17 08/11/25 18:17 Labs: Lab Results 08/11/25 08/11/25 Range/Units 18:17 21:08 WBC 11.0 H (4.5-10.0) K/mm3 RBC 4.57 (4.2-5.4) M/mm3 Hgb 14.2 (12.0-15.0) g/dL Hct 43.1 (37.0-47.0) % MCV 94.3 (80-100) fl MCH 31.1 (26-34) pg MCHC 32.9 (32-36) g/dl RDW 13.1 (11.5-14.5) % Plt Count 425 H (150-375) k/mm3 MPV 9.3 (7.4-10.4) fl Immature Gran % (Auto) 0.3 (0-0.5) % Neut % (Auto) 69.8 (45.5-73.1) % Lymph % (Auto) 23.6 (18.3-44.2) % [place] % (Auto) 4.7 (2.6-8.5) % Eos % (Auto) 0.9 (0-4.4) % Baso % (Auto) 0.7 (0.2-1.2) % Lymph # (Auto) 2.60 (0.9-3.2) K/mm3 [place] # (Auto) 0.5 (0.1-0.6) K/mm3 Eos # (Auto) 0.1 (0-0.3) K/mm3 Baso # (Auto) 0.1 (0.0-0.1) K/mm3 Abs Immat Gran (auto) 0.03 (0.00-0.031) K/mm3 Absolute Neuts (auto) 7.7 H (1.3-6.7) K/mm3 Absolute Nucleated RBC 0.000 (0.0-0.012) K/mm3 Nucleated RBC % 0.0 (0.0-0.2) % PT 12.1 (11.1-14.7) Seconds INR 0.9 APTT 25.2 (22.3-36.8) Seconds Sodium 139 (137-145) mmol/L Potassium 3.5 (3.4-5.0) mmol/L Chloride 107 (98-107) mmol/L Carbon Dioxide 22 (22-30) mmol/L Anion Gap 10 (4-12) mmol/L BUN 16 (7-17) mg/dL Creatinine 0.79 (0.7-1.0) mg/dL Estim Creat Clear Calc 59 ml/min Estimated GFR > 60 (59 - ) Glucose 97 (65-110) mg/dL Calcium 9.5 (8.4-10.2) mg/dL Total Bilirubin 0.3 (0.2-1.3) mg/dL AST 25 (14-36) U/L ALT 20 (6-35) U/L Alkaline Phosphatase 75 (38-126) U/L Troponin I < 0.012 < 0.012 (0.000-0.034) ng/mL Total Protein 7.8 (6.3-8.2) g/dL Albumin 4.5 (3.5-5.1) g/dL Lipase 74 (23-300) U/L Imaging Data Attestation: I personally reviewed and interpreted this imaging study as follows: My impression: Chest x-ray: Normal cardiac silhouette, no consolidations, no pleural effusions, no pulmonary vascular congestion Radiologist's impression: CT head: Mild diffuse cerebral atrophy, no acute large vessel infarct or intracranial hemorrhage is seen. CT facial bones: small left supraorbital hematoma. No orbital fracture is seen. The globes are symmetrical. No retrobulbar hematoma. No acute facial fractures identified. Discharge Plan Discharge Clinical Impression: Chest pain Qualifiers: Chest pain type: intercostal pain Qualified Code(s): R07.82 - Intercostal pain Patient Disposition: Home Condition: Stable Instructions: Antibiotic Form, Chest Pain (ED) Additional Instructions: Lab work and imaging showed no evidence of cardiac damage at this time. Follow up with Dr. Champion, family medicine, in the next week for reevaluation. Return to the ED for new or worsening symptoms. For pain, discomfort or temperature greater than or equal to 100.8 ?F please alternate the following 2 medications as needed. First medication- acetaminophen/Tylenol- 1000mg every 6-8 hours as needed for above indications. Second medication- ibuprofen/Motrin-600mg every 6-8 hours as needed for above indication. Patient Language: Wallisian Follow-up/Referrals: Jorge Champion DO [Physician, Family Practice] PHYSICIAN,CLINICAL RN LIAISON [Primary Care Provider, Internal Medicine]
--- NOTE | 2025-08-11 20:05 | PC.NURSE ---
Pt to CT
[2025-08-11] MEDS: PROCHLORPERAZINE EDISYLATE 10 MG/2 ML VIAL IV PUSH (20:28)
[2025-08-11] MEDS: KETOROLAC 30 MG/ML VIAL (*BKC) IV PUSH (20:28)
[2025-08-11] MEDS: CARBAMIDE PEROXIDE 6.5% OT SOLN 15 ML BTL 5 DROP RIGHT EAR (20:29)
--- NOTE | 2025-08-11 21:25 | ECG_ITS ---
Test Date: 2025-08-11 21:40:31 Measurements Intervals [place] Rate: 73 P: 27 NC: 126 QRS: 68 QRSD: 93 T: 44 QT: 394 QTc: 436 Interpretive Statements SINUS RHYTHM Electronically Signed On 08-12-2025 18:24:56 ROOM SERVICE WAITER/WAITRESS by Angelina Alford M.D.
[2025-08-11 21:41] LABS: Troponin I < 0.012 ng/mL (0.000-0.034)
--- NOTE | 2025-08-11 21:41 | PC.NURSE ---
Morphine and zofran were given later d/t pt being able to go to the bathroom
--- NOTE | 2025-08-12 11:19 | PC.NURSE ---
spoke to pt about updated CT Angelica results, A gentleman kept interrupting, asked him to let me speak to the pt. would speak to him with pt approval. Pt was made aware of results, and recommendations fro ELOISE Eastman All questions answered prior to end of call
== END 2025-08-11 22:14 | disposition home or self-care (01) ==
PROVIDERS: Emergency Medicine; Emergency Provider Student in an Organized Health Care Education/Training Program
DX: R07.82 Intercostal pain (principal); R94.31 Abnormal electrocardiogram [ECG] [EKG]
CPT/HCPCS: 36415; 70450; 70486; 71046; 80053; 83690; 84484; 85025; 85610; 85730; 93005; 96374; 96375; 99284; A9270; J0780; J1200; J1885